=== PATIENT | male | born 1945 | race Caucasian/White ===

== ENCOUNTER 2018-09-02 19:56 | Emergency (ER) | payer MEDICARE ==
[2018-09-02] MEDS ORDERED: ACETAMINOPHEN 1,000 MG/100 ML BTL IVPB ONE (19:58)
[2018-09-02] MEDS ORDERED: 0.9 % SODIUM CHLORIDE 1000ML 500 ML IV SCH (20:00)
--- NOTE | 2018-09-02 20:04 | Emergency Department Record ---
History of Present Illness - General Chief Complaint: Fall Injury Stated Complaint: FALL Time Seen by Provider: 09/02/18 19:57 Source: Patient, EMS Mode of Arrival: EMS Limitations: No limitations - History of Present Illness Initial Comments: 72 yo male presents to ED for evaluation following a fall from the end of his bed this evening. Patient reports fever symptoms, abdominal pain, and loose stools. Patient reports that de does take Coumadin for atrial fibrillation, reports that he was too weak to get back up and was on the floor for approximat hermelinda 90 minutes. Patient reports mild cough symptoms as well. Patient denies pain other than abdominal pain and loose stools, reports history of diverticulitis. MD Complaint: Fall Onset/Timin -: Days(s) Fall From: Out of bed When Fall Occurred: 1-3 hours [employer] Fall Witnessed: No Place Fall Occurred: Home Loss of Consciousness: None Prolonged Down Time?: Unclear Symptoms Prior to Fall: Other (Weak all over) Associated Symptoms: Abdominal pain, Weakness - Ila Coma Scale Eye Response: (4) Open spontaneously Motor Response: (6) Obeys commands Verbal Response: (5) Oriented Vassar Total: 15 - Related Data Home Medications Medication Instructions Recorded Confirmed Last Taken Ascorbic Acid [Vitamin C] 1,000 mg PO BID 09/02/18 09/02/18 09/02/18 Aspirin [Aspir-Low] 81 mg PO DAILY 09/02/18 09/02/18 09/02/18 Calcium Carbonate/Vitamin D3 1 tab PO DAILY 09/02/18 09/02/18 09/02/18 [Calcium 1,000 + D3 Caplet] Carvedilol 1 tab PO BID 09/02/18 09/02/18 09/02/18 Clindamycin HCl 300 mg PO QID 09/02/18 09/02/18 09/02/18 Magnesium 200 mg PO DAILY 09/02/18 09/02/18 09/02/18 Multivitamin [Multiple Vitamins] 1 tab PO DAILY 09/02/18 09/02/18 09/02/18 Pravastatin Sodium [Pravachol] 20 mg PO QHS 09/02/18 09/02/18 09/01/18 Sacubitril/Valsartan [Entresto 49 1 tab PO BID 09/02/18 09/02/18 09/02/18 mg-51 mg Tablet] Warfarin Sodium 1 tab PO ASDIR 09/02/18 09/02/18 09/01/18 Warfarin Sodium 1 tab PO DAILY 09/02/18 09/02/18 09/01/18 Allergies Allergy/AdvReac Type Severity Reaction Status Date / Time No Known Drug Allergies Allergy Verified 09/02/18 20:06 Review of Systems Constitutional: Reports: Chills, Fever, Malaise, Weakness. Denies: Night sweats Eyes: Denies: Eye discharge, Eye pain ENT: Denies: Congestion, Ear pain, Epistaxis Respiratory: Reports: Cough. Denies: Dyspnea Cardiovascular: Denies: Chest pain, Dyspnea on exertion, Edema Endocrine: Reports: Fatigue. Denies: Heat or cold intolerance Gastrointestinal: Reports: Abdominal pain. Denies: Constipation, Nausea, Vomiting Genitourinary: Denies: Incontinence, Retention Musculoskeletal: Denies: Arthralgia, Back pain Skin: Denies: Bruising, Change in color Neurological: Denies: Abnormal gait, Confusion, Headache, Seizure Psychiatric: Denies: Anxiety Hematological/Lymphatic: Reports: Easy bleeding, Easy bruising. Denies: Anemia, Blood Clots Physical Exam - General General Appearance: Alert, Oriented x3, Cooperative, Moderate distress Limitations: No limitations - Head Head exam: Atraumatic, Normocephalic, Normal inspection Head exam detail: negative: Abrasion, Contusion, Salter's sign, General tenderness, Hematoma, Laceration - Eye Eye exam: Normal appearance. negative: Conjunctival injection, Periorbital swelling, Periorbital tenderness, Scleral icterus - ENT Ear exam: negative: Auricular hematoma, Auricular trauma Nasal Exam: negative: Active bleeding, Discharge, Dried blood, Foreign body Mouth exam: negative: Drooling, Laceration, Muffled voice, Tongue elevation - Neck Neck exam: Normal inspection. negative: Meningismus, Tenderness - Respiratory Respiratory exam: Normal lung sounds bilaterally. negative: Rales, Respiratory distress, Rhonchi, Stridor - Cardiovascular Cardiovascular Exam: Regular rate, Normal rhythm, Normal heart sounds - GI/Abdominal GI/Abdominal exam: Soft, Tenderness (Diffuse TTP on examination, no rebound, guarding is present on examination.). negative: Rebound, Rigid - Rectal Rectal exam: Deferred - exam: Deferred - Extremities Extremities exam: Other (Abrasion to the right posterior shoulder). negative: Pedal edema, Tenderness - Back Back exam: Denies: CVA tenderness (R), CVA tenderness (L) - Neurological Neurological exam: Alert, Oriented X3 - Psychiatric Psychiatric exam: Normal affect, Normal mood - Skin Skin exam: Abrasion, Normal color Type of lesion: abrasion Course - Reevaluation(s) Reevaluation #1: 09/02/18 20:41 Laboratory studies were reviewed and appears grossly unremarkable for an acute process except for the following: WBC 12.8 INR 3.3 Reevaluation #2: 09/02/18 22:20 Unasyn has almost completed infusing at this time, BP 97/61 (improving) LA 1.0 Chest: No acute process CT Brain: No acute process CT Abdomen/Pelvis: Sigmoid diverticulitis with micro perforation measuring 2.0 x 2.6 cm Patient and family were updated on all results, BP slowly improving, [facility] 1- call contacted for transfer. Reevaluation #3: 09/02/18 22:35 Case was discussed with Dr. Rocha and Dr. Parra, will accept the patient for further evaluation and treatment. Patient and family members were updated on all results and the plan of care at this time, repeat BP 107/59. Medical Decision Making - Lab Data Result diagrams: 09/02/18 20:15 09/02/18 20:15 Disposition Disposition: Transfer Clinical Impression: Diverticulitis of colon with perforation Qualifiers: Diverticulitis bleeding: without bleeding Qualified Code(s): K57.20 - Diverticulitis of large intestine with perforation and abscess without bleeding Disposition: Acute Care Hospital Transfer Transfer To: [facility] Reason For Transfer: Diverticulitis with perforation Accepting Physician: Aida Reagan Time Discussed w/Accepting Physician: 22:36 Forms: Patient Portal Access Time of Disposition: 22:36 Quality - Quality Measures Quality Measures: N/A - Blood Pressure Screening Does Patient Have Any of the Following: No Blood Pressure Classification: Normal BP Reading Systolic Measurement: 97 Diastolic Measurement: 61 Screening for High Blood Pressure: < Normal BP, F/U Not Required > [G8783]
[2018-09-02 20:22] LABS: ABSOLUTE NEUTROPHIL COUNT 11.21; BASO % 0.1 % (0-6); EOS % 0.2 % (0-6); HEMATOCRIT 43.7 % (42.0-52.0); HEMOGLOBIN 14.2 gm/dl (14.0-18.0); LYMPH % 4.4 % (16-45); MEAN CELL VOLUME 94.6 fl (81-97); MEAN CORPUSCULAR HEMOGLOBIN 30.7 pg (27-33); MEAN CORPUSCULAR HGB CONC 32.5 g/dl (32-36); MEAN PLATELET VOLUME 9.9 fl (7.4-10.4); PLATELET COUNT 199 K/uL (130-400); RED BLOOD COUNT 4.62 M/uL (4.40-5.70); RED CELL DISTRIBUTION WIDTH 13.9 % (11.5-14.5); WHITE BLOOD COUNT W/O DIFF 12.8 K/uL (4.2-12.2)
[2018-09-02 20:33] LABS: INR 3.3; PROTHROMBIN TIME (PATIENT) 32.4 SECONDS (9.5-12.1)
[2018-09-02 20:37] LABS: BLOOD UREA NITROGEN 20 mg/dL (8-23); CREATININE 1.1 mg/dL (0.7-1.2); EST GLOMERULAR FILTRATION RATE > 60 mL/min
[2018-09-02 20:38] LABS: TOTAL PROTEIN 5.8 g/dL (6.6-8.7)
[2018-09-02 20:40] LABS: GLUCOSE,RANDOM 128 mg/dL (74-109)
[2018-09-02 20:42] LABS: ALB/GLOB RATIO 2.2 (1.1-1.8); ALT/SGPT 14 U/L (<41); AST/SGOT 17 U/L (10.0-50.0)
[2018-09-02 20:43] LABS: ALKALINE PHOSPHATASE 56 U/L (40-129)
[2018-09-02 21:09] LABS: PLATELET ESTIMATE NORMAL (NORMAL)
[2018-09-02] MEDS ORDERED: FENTANYL PF 100MCG/2ML VIAL IVP ONE ×2 (21:42→23:41)
[2018-09-02] MEDS ORDERED: AMPICILLIN SODIUM/SULBACTAM NA 3 G in 0.9 % SODIUM CHLORIDE 100ML 100 ML IVPB ONE (21:53)
[2018-09-02 22:02] LABS: URINE APPEARANCE CLEAR; URINE BILIRUBIN NEGATIVE (NEGATIVE); URINE BLOOD NEGATIVE (NEGATIVE); URINE COLOR YELLOW; URINE GLUCOSE (UA) NEGATIVE (NEGATIVE); URINE KETONE 15 mg/dL (NEGATIVE); URINE LEUKOCYTE ESTERASE NEGATIVE (NEGATIVE); URINE NITRITE NEGATIVE (NEGATIVE); URINE UROBILINOGEN 0.2 E.U./dL (0.20 - 1.00)
[2018-09-02 22:09] LABS: URINE EPITHELIAL CELLS NONE SEEN (FEW); URINE RBC NONE SEEN (NONE SEEN); URINE WBC NONE SEEN (0-2/hpf)
[2018-09-02 22:10] LABS: URINE HYALINE CAST 0 - 5 /lpf
[2018-09-02] MEDS ORDERED: 0.9 % SODIUM CHLORIDE 1000ML 1,000 ML IV PRN (22:39)
--- NOTE | 2018-09-04 21:24 | CT SCAN REPORT ---
EXAM: CT SCAN HEAD WO CONTRAST HISTORY: FALL. TECHNIQUE: Routine noncontrast CT images of the head were obtained. FINDINGS: The ventricles, basal cisterns, and sulci are of normal size, shape, and configuration. No midline shift or mass effect. There appears to be old ischemic change within the left high parietal region. Additionally, there is mild scattered periventricular hypoattenuation compatible with chronic microvascular ischemia. No conclusive evidence for acute ischemia. No intracranial mass or hemorrhage. Orbital contents are unremarkable. Paranasal sinuses and mastoid air cells are essentially clear. There are atherosclerotic calcifications. IMPRESSION: 1. NO ACUTE INTRACRANIAL ABNORMALITY. 2. CHRONIC-APPEARING ISCHEMIC CHANGES. JOB [facility]BER: [id number] [facility]
--- NOTE | 2018-09-04 21:29 | RADIOLOGY REPORT ---
EXAM: CHEST 2 VIEWS COMPARISON: 08/13/11. HISTORY: COUGH, FEVER, AND WEAKNESS. FALL. ON COUMADIN. TECHNIQUE: Chest, two view. FINDINGS: There is a left chest IACD in place. There are coarsened interstitial markings throughout the lungs compatible with scarring/fibrosis. Most notably, there is some scarring within the left lung base. No clear focal consolidation or pleural effusion. The lungs are hyper- aerated compatible with emphysematous change/COPD. Degenerative changes in the thoracic spine. IMPRESSION: NO CONCLUSIVE ACUTE PROCESS. COPD. CHRONIC SCARRING/FIBROSIS. [facility]: [id number] [facility]
--- NOTE | 2018-09-04 21:43 | CT SCAN REPORT ---
EXAM: CT SCAN ABDOMEN/PELVIS W CONTRAST HISTORY: LOWER ABDOMINAL AND BACK PAIN. HISTORY OF DIVERTICULITIS. TECHNIQUE: Routine CT images of the abdomen and pelvis obtained following the intravenous administration of contrast. Amount and type of contrast in the medical record. FINDINGS: The visualized lung bases are unremarkable. There is a 3 cm size range probable cyst left lobe of the liver. Gallbladder, pancreas, spleen, and adrenals are unremarkable. Kidneys enhance normally with contrast. There are bilateral renal cysts. There is sigmoid diverticulitis with suggestion of microperforation along the anterior aspect of the sigmoid colon, seen best on axial images 124 through 131. There is inflammatory change within the sigmoid mesocolon. No well-defined rim- enhancing abscess noted at this time. Elsewhere, there is moderate colonic diverticulosis without evidence for diverticulitis. Appendix has a normal noncontrast appearance. Small bowel is normal in caliber. Sigmoid mesocolon inflammatory change extends to the bladder wall. No air is seen within the bladder. No prominent bladder wall thickening. There is moderate atherosclerotic calcification. There is borderline aneurysmal dilation of the infrarenal abdominal aorta measuring 3.1 x 2.5 cm just above the bifurcation. No abdominal or pelvic lymphadenopathy. Small fat-containing bilateral inguinal and periumbilical hernias. No acute osseous abnormality. Moderate lumbar spondylosis. IMPRESSION: 1. THERE IS MODERATE ACUTE SIGMOID DIVERTICULITIS WITH EVIDENCE FOR MICROPERFORATION ALONG THE ANTERIOR ASPECT OF THE SIGMOID COLON WITH FOCUS OF GAS MEASURING APPROXIMATELY 2.6 X 2 CM. THERE IS MODERATE SURROUNDING SIGMOID MESOCOLON INFLAMMATORY CHANGE. NO WELL-DEFINED RIM-ENHANCING ABSCESS AT THIS POINT. 2. INFLAMMATORY CHANGE FROM ACUTE DIVERTICULITIS EXTENDS TO THE ANTERIOR ASPECT OF THE BLADDER. 3. SMALL HEPATIC CYSTS. 4. BILATERAL RENAL CYSTS. 5. OTHER CHRONIC FINDINGS ABOVE. JOB NUMBER: [id number] [facility]
== END 2018-09-03 00:13 | disposition short-term general hospital (02) ==
LOC: ER 19:56
DX: S40.211A Abrasion of right shoulder, initial encounter (principal); K57.20 Diverticulitis of large intestine with perforation and abscess without bleeding; R53.1 Weakness; R05 Cough; R19.7 Diarrhea, unspecified; I48.91 Unspecified atrial fibrillation; Z79.01 Long term (current) use of anticoagulants; W06.XXXA Fall from bed, initial encounter; Y92.003 Bedroom of unspecified non-institutional (private) residence as the place of occurrence of the external cause
CPT/HCPCS: 70450; 71046; 74177; 80053; 81001; 83605; 85027; 85610; 96361; 96365; 96366; 96375; 96376; 99285; J0295; J7030